=== PATIENT | male | born 1965 | race Caucasian/White ===

== ENCOUNTER 2023-07-25 08:18 | Emergency (ER) | payer BC ==
[~2023-07-25] VITALS: Ht 190.5 cm; Wt 106.8 kg
[2023-07-25] MEDS: acetaminophen 325mg tablet PO ONE (09:25)
[2023-07-25] MEDS ORDERED: ketorolac trometh. 30mg/ml inj. IV ONE (09:40)
[2023-07-25] MEDS: metoclopramide 5 mg/ml inj IV ONE (09:58)
[2023-07-25] MEDS: ketorolac tromethamine 15mg/ml inj. IV ONE (09:58)
[2023-07-25] MEDS: diphenhydrAMINE 50 mg/ml inj IV ONE (09:58)
[2023-07-25] MEDS: normal saline 1000ML IV soln IV ONE (09:59)
[2023-07-25 11:15] LABS: EOSINOPHILS % (AUTO) 0.1 % (0-6); HEMOGLOBIN 14.1 g/dl (14.0-17.9); MEAN CORPUSCULAR HEMOGLOBIN 30.5 PG (27.0-31.0); MONOCYTES # (AUTO) 1.8 X10'3 (0-0.9)
[2023-07-25 11:17] LABS: BASOPHILS % (AUTO) 0.4 % (0-1); HEMATOCRIT 40.7 % (42.0-52.0); LYMPHOCYTES # (AUTO) 0.8 X10'3 (1.1-4.8); LYMPHOCYTES % (AUTO) 7.9 % (21-51); MEAN CORPUSCULAR HGB CONC 34.7 g/dL (33.0-36.5); MEAN CORPUSCULAR VOLUME 87.8 FL (78-98); MEAN PLATELET VOLUME 9.3 FL (7.4-10.4); MONOCYTES % (AUTO) 18.5 % (2-12); NEUTROPHILS % (AUTO) 73.1 % (42-75); PLATELET COUNT 177 X10'3 (140-440); RED BLOOD COUNT 4.64 X10'6 (4.70-6.10); RED CELL DISTRIBUTION WIDTH 12.6 % (11.5-14.5); WHITE BLOOD COUNT 9.5 X10'3 (4.5-11.0)
[2023-07-25 11:39] LABS: TOTAL CELLS COUNTED 100
[2023-07-25 11:40] LABS: LARGE PLATELETS FEW; PLATELET ESTIMATE NORMAL; POIKILOCYTOSIS FEW
[2023-07-25 12:05] VITALS: TEMP 99.2
[2023-07-25 12:18] LABS: BILIRUBIN,URINE MODERATE (Neg); CLARITY,URINE SLIGHTLY CLOUDY (Clear); COLOR,URINE YELLOW (Yellow); GLUCOSE, URINE NEGATIVE (Neg); KETONES,URINE 15 mg/dl (Neg); LEUKOCYTE ESTERASE ,URINE NEGATIVE (Neg); NITRITES, URINE NEGATIVE (Neg); OCCULT BLOOD,URINE NEGATIVE (Neg); PH,URINE 5.5 (4.8-8.0); PROTEIN,URINE TRACE mg/dl (Neg)
[2023-07-25 12:22] LABS: UA COLLECTION TYPE CLN CATCH MIDSTREAM
[2023-07-25 12:24] LABS: MUCUS STRANDS MANY /LPF (Neg)
[2023-07-25 12:25] LABS: SQUAMOUS EPITHELIAL CELL,UR FEW /LPF (FEW)
[2023-07-25] MEDS: oxyCODONE/APAP 10/325mg tablet PO ONE (12:25)
[2023-07-25 12:28] LABS: BACTERIA,URINE FEW /HPF (Neg); RBC,URINE 0-2 /HPF (0-2); WBC,URINE 0-4 /HPF (0-4)
[2023-07-25 13:07] LABS: ALBUMIN 2.6 G/DL (3.4-5.0); ANION GAP 10 (8-16); BLOOD UREA NITROGEN 17 MG/DL (7-18); BUN/CREATININE RATIO 13.6 (10.0-20.0); CALCIUM 8.3 MG/DL (8.5-10.1); CHLORIDE 93 MMOL/L (99-107); CREATININE 1.25 MG/DL (0.60-1.10); GLUCOSE 129 MG/DL (70-104); POTASSIUM 3.2 MMOL/L (3.5-5.1); SODIUM 131 MMOL/L (135-145); TOTAL CARBON DIOXIDE 28.5 MMOL/L (24-32); eCRCL 78 ML/MIN; eGFR 60 ML/MIN
[2023-07-25] MEDS ORDERED: HYDR-3973 PO ×2 (13:16→13:18)
[2023-07-25 14:16] VITALS: BP 100/49; PULSE 87; RESP 18; O2SAT 94
== END 2023-07-25 14:17 | disposition home or self-care (01) ==
LOC: ER 08:19
DX: R51.9 Headache, unspecified (principal); R50.9 Fever, unspecified; I10 Essential (primary) hypertension; R30.0 Dysuria; R53.1 Weakness; Z79.899 Other long term (current) drug therapy
CPT/HCPCS: 36415; 70450; 80048; 81001; 83605; 84145; 85007; 85025; 87040; 87502; 87503; 87811; 96361; 96374; 96375; 99285; J1200; J1885; J2765; J7030